=== PATIENT | female | born 1935 | race Caucasian/White ===

== ENCOUNTER 2016-09-23 09:40 | Emergency (ER) | payer MEDICARE, BC ==
[~2016-09-23] VITALS: Ht 154.9 cm; Wt 42.6 kg
[~2016-09-23 09:40] MED LIST: ALLEGRA ALLERGY60 M1 PO; BENADRYL CRE1 APPLIC TOPIC; BENADRYL25 M3 PO; BENADRYL25 MG ORAL; DIPHENHYDRAMINE25 M1 ORAL; PREDNISONE20 MG ORAL; RANITIDINE HCL150 MG ORAL
[2016-09-23] MEDS ORDERED: PredniSONE 20mg tab ORAL ONE (10:15)
--- NOTE | 2016-09-23 10:16 | Emergency Room Report ---
History of Present Illness General Chief Complaint: Allergic Reaction Source: Patient Present Illness HPI Patient present with complaints of rash involving her back hands and arms and lower extremity Patient has been dealing with this for several years Does have an sap basis specialist however he was closed today Patient started yesterday with increased rash on the back hands arms In the lower extremity patient had taken an extra Benadryl and Zantac on top of her daily allergy medication It seemed to initially improve the discomfort However the rash did come back this morning Patient denies any vomiting or diarrhea Denies any itching at this time however initially yesterday she had some increased itching Allergies: Coded Allergies: ACETAMINOPHEN (Verified Allergy, Unknown, 09/23/16) IBUPROFEN (Verified Allergy, Unknown, 09/23/16) STRAWBERRY (Verified Allergy, Unknown, 09/23/16) Patient History Past Medical History: see triage record Pertinent Family History: none Reviewed Nursing Documentation: PMH: Agreed, PSxH: Agreed Nursing Documentation-PMH Hx Hypertension: No Hx Neurological Problems: Yes - PARKINSON'S DISEASE Review of Systems All Other Systems: negative except mentioned in HPI Physical Exam Vital Signs Date Time Temp Pulse Resp B/P Pulse Ox O2 Delivery O2 Flow Rate FiO2 09/23/16 09:50 97.7 83 16 104/59 97 Room Air Sp02 EP Interpretation: reviewed, normal General Appearance: well appearing, no apparent distress Head: normocephalic, atraumatic Eyes: bilateral eye EOMI, bilateral eye PERRL ENT: hearing grossly normal, normal pharynx, TMs + canals normal, uvula midline Neck: full range of motion, supple, no meningismus, no bony tend Respiratory: lungs clear, normal breath sounds, no rhonchi, no respiratory distress, no retraction, no accessory muscle use Cardiovascular #1: normal peripheral pulses, regular rate, rhythm, no edema, no gallop, no JVD, no murmur Gastrointestinal: normal bowel sounds, non tender, soft, no mass, no organomegaly, non-distended, no guarding, no hernia, no pulsatile mass, no rebound Genitourinary: no CVA tenderness Musculoskeletal: normal inspection Neurologic: oriented x3, responsive, service agent III-XII nml as tested, motor strength/ tone normal, sensory intact Psychiatric: mood/affect normal Skin: other - Nonspecific finding erythematous hue involving the hands, lower extremity, the areas on the back have resolved, the rash is somewhat nonspecific no signs of any target cell appearance does not appear petechial in nature, no blister formation, or dermatomal fashion Lymphatic: normal inspection, no adenopathy Medical Decision Making Diagnostic Impression: Primary Impression: Allergic reaction Additional Impression: Dermatitis ER Course Patient has had several visits with similar problem and complaint patient is followed by dermatology and sap basis Family reports of the have still not been able to pinpoint the specifics of the etiology There was no change in medications no other contact At this time patient was treated symptomatically Appears medically stable and is appropriate for close outpatient followup There are no signs of any upper airway pathology Last Vital Signs Date Time Temp Pulse Resp B/P Pulse Ox O2 Delivery O2 Flow Rate FiO2 09/23/16 09:50 97.7 83 16 104/59 97 Room Air Status: improved Disposition: HOME, SELF-CARE Condition: Improved Scripts Ranitidine Hcl* (ZANTAC*) 150 Mg Tablet 150 MG ORAL TWICE A DAY, #30 TAB Prov: FRED PICKERING D.O. 09/23/16 Diphenhydramine Hcl* (BENADRYL*) 25 Mg Capsule 25 MG ORAL Q6H Y for Itching, #20 CAP Prov: FRED PICKERING D.O. 09/23/16 Prednisone* (PREDNISONE*) 20 Mg Tablet 20 MG ORAL BID, #8 TAB Prov: FRED PICKERING D.O. 09/23/16 Referrals: NOT CHOSEN IPA/,REFERRING (PCP) Additional Instructions: Patient is provided with the discharge instructions notified to follow up with primary doctor in the next 2-3 days otherwise return to the er with any worsening symptoms. FRED PICKERING D.O. Sep 23, 2016 10:16
[2016-09-23 10:27] VITALS: BP 104/59
[2016-09-23] MEDS ORDERED: PREDNISONE20 MG ORAL (11:08)
[2016-09-23] MEDS ORDERED: BENADRYL25 MG ORAL (11:08)
[2016-09-23] MEDS ORDERED: RANITIDINE HCL150 MG ORAL (11:08)
[2016-09-23 11:27] VITALS: BP 108/63
[2016-09-23 11:29] VITALS: BP 108/63
== END 2016-09-23 11:30 | disposition home or self-care (01) ==
LOC: EMR 10:11
DX: T78.40XA Allergy, unspecified, initial encounter (principal); L30.9 Dermatitis, unspecified; G20 Parkinson's disease; X58.XXXA Exposure to other specified factors, initial encounter; Z88.6 Allergy status to analgesic agent; Z91.018 Allergy to other foods
CPT/HCPCS: 99284

== ENCOUNTER 2017-09-12 00:44 | Emergency (ER) | payer MEDICARE, BC ==
[~2017-09-12] VITALS: Ht 154.9 cm; Wt 42.2 kg
[2017-09-12] MEDS ORDERED: Solu-MEDROL 125mg Inj IVP ONE (01:15)
[2017-09-12] MEDS ORDERED: DiphenhydrAMINE 50mg/ml Inj IVP ONE (01:15)
[2017-09-12] MEDS ORDERED: PREDNISONE20 MG ORAL (01:33)
--- NOTE | 2017-09-12 01:33 | Emergency Room Report ---
History of Present Illness General Chief Complaint: Skin Rash/Abscess Source: Patient Present Illness HPI This is an 82-year-old female with a history of allergies to multiple things. She presents with chief complaint of allergic reaction. She broke out in a rash around 11 PM. Her gave her 25 mg Benadryl without much relief. This is a episodic and chronic issue. 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 No new Medication or food tonight. No tongue edema. No respiratory complaint. Allergies: Coded Allergies: ACETAMINOPHEN (Verified Allergy, Unknown, 09/23/16) IBUPROFEN (Verified Allergy, Unknown, 09/23/16) STRAWBERRY (Verified Allergy, Unknown, 09/23/16) Patient History Past Medical History: see triage record, old chart reviewed Past Surgical History: other Pertinent Family History: none Social History: Denies: smoking Now: No Immunizations: other Reviewed Nursing Documentation: PMH: Agreed, PSxH: Agreed Nursing Documentation-PMH Hx Hypertension: No Hx Neurological Problems: Yes - PARKINSON'S DISEASE Review of Systems Eye: Denies: eye pain, blurred vision ENT: Denies: ear pain, nose congestion, throat swelling Respiratory: Denies: cough, shortness of breath Cardiovascular: Denies: chest pain, palpitations Gastrointestinal: Denies: abdominal pain, diarrhea, nausea, vomiting Musculoskeletal: Denies: back pain, joint pain Skin: Reports: rash Neurological: Denies: headache, numbness Endocrine: Denies: increased thirst, increased urine Hematologic/Lymphatic: Denies: easy bruising All Other Systems: negative except mentioned in HPI Physical Exam Vital Signs Date Time Temp Pulse Resp B/P (MAP) Pulse Ox O2 Delivery O2 Flow Rate FiO2 09/12/17 00:52 97.5 93 16 164/86 95 Room Air vitals with high blood pressure Sp02 EP Interpretation: reviewed, normal General Appearance: well appearing, no apparent distress, alert Head: normocephalic, atraumatic Eyes: bilateral eye PERRL, bilateral eye EOMI ENT: hearing grossly normal, normal pharynx Neck: full range of motion, supple, no meningismus Respiratory: chest non-tender, lungs clear, normal breath sounds Cardiovascular #1: regular rate, rhythm, no murmur Gastrointestinal: normal bowel sounds, non tender, no mass, no organomegaly, no bruit, non-distended Musculoskeletal: back normal, normal range of motion, other - Uses a walker Neurologic: alert, oriented x3 Psychiatric: mood/affect normal Skin: warm/dry, other - Diffuse hyperemia Medical Decision Making Diagnostic Impression: Primary Impression: Allergic reaction Qualified Codes: T78.40XA - Allergy, unspecified, initial encounter ER Course Patient with unknown allergic reaction. Better now. We'll discharge home. No anaphylaxis Last Vital Signs Date Time Temp Pulse Resp B/P (MAP) Pulse Ox O2 Delivery O2 Flow Rate FiO2 09/12/17 00:52 97.5 93 16 164/86 95 Room Air Status: improved Disposition: HOME, SELF-CARE Condition: Stable Scripts Prednisone* (PREDNISONE*) 20 Mg Tablet 20 MG ORAL DAILY, #5 TAB Prov: RADHA SANDRA M.D. 09/12/17 Referrals: NON PHYSICIAN (PCP) Additional Instructions: followup with your DrAdria in 7 days. Return if worse. RADHA SANDRA M.D. Sep 12, 2017 01:33
[2017-09-12 01:48] VITALS: BP 150/82
[2017-09-12 01:50] VITALS: BP 150/82
== END 2017-09-12 01:50 | disposition home or self-care (01) ==
LOC: EMR 01:03
DX: T78.40XA Allergy, unspecified, initial encounter (principal); X58.XXXA Exposure to other specified factors, initial encounter; G20 Parkinson's disease; Z88.6 Allergy status to analgesic agent; Z91.018 Allergy to other foods
CPT/HCPCS: 96374; 96375; 99284; J1200; J2930; S0028

== ENCOUNTER 2017-12-26 14:14 | Emergency (ER) | payer MEDICARE, BC ==
[~2017-12-26] VITALS: Ht 154.9 cm; Wt 44.5 kg
--- NOTE | 2017-12-26 14:42 | Emergency Room Report ---
History of Present Illness General Chief Complaint: Laceration Source: Patient, Medical Record (Ezequiel Rogel) Present Illness HPI 82-year-old female patient presents ER complaining of laceration on leg. Patient reports that she was standing by her bed and cut her leg on her mattress.was bleeding from site of injury. Denies taking any medication pain. Denies difficulty walking, reports she normally walks with a walker. Denies fever, chest pain or shortness breath. Denies hitting head or loss of consciousness. does not know tetanus vaccination status. (Ezequiel Rogel.AAdria) Allergies: Coded Allergies: ACETAMINOPHEN (Verified Allergy, Unknown, 09/23/16) IBUPROFEN (Verified Allergy, Unknown, 09/23/16) STRAWBERRY (Verified Allergy, Unknown, 09/23/16) Patient History Past Medical History: see triage record Reviewed Nursing Documentation: PMH: Agreed; PSxH: Agreed (Ezequiel Rogel) Nursing Documentation-PMH Past Medical History: No History, Except For Hx Hypertension: No Hx Neurological Problems: Yes - PARKINSON'S DISEASE (Ezequiel Rogel.Alla) Review of Systems All Other Systems: negative except mentioned in HPI (Ezequiel Rogel.Alla) Physical Exam Vital Signs Date Time Temp Pulse Resp B/P (MAP) Pulse Ox O2 Delivery O2 Flow Rate FiO2 12/26/17 14:19 97.8 87 18 109/57 96 Room Air 97.9 Sp02 EP Interpretation: reviewed, normal General Appearance: well appearing, no apparent distress, alert, GCS 15, non- toxic Head: normocephalic, atraumatic Neck: full range of motion Respiratory: lungs clear, normal breath sounds, no rhonchi, no respiratory distress, no accessory muscle use, no wheezing, speaking full sentences Cardiovascular #1: regular rate, rhythm, no edema Cardiovascular #2: 2+ dorsalis pedis (R), 2+ dorsalis pedis (L) Musculoskeletal: back normal, digits/nails normal, gait/station normal, normal range of motion, non-tender Skin: other - right lower leg, anterio: 2cm x 3cm skin avulsion, no active bleeding, superifical, avulsed skin present (Ezequiel Rogel) Medical Decision Making PA Attestation Dr. Cabrera is my supervising Physician whom patient management has been discussed with. (Ezequiel Rogel) Medicare Attestation The history of Noemi Arriaga has been reviewed and management options for her have been examined and discussed by Ignacio Cabrera. I have personally examined and interviewed the patient. (IGNACIO CABRERA D.O.) Diagnostic Impression: Primary Impression: Avulsion of skin ER Course Pt presents to ED c/o skin avulsion Distal Right Anterior lower leg. DDX considered but are not limited to laceration, abrasion, contusion, skin avulsion. VITAL SIGNS are WNL, patient is afebrile ED INTERVENTIONS: TDAP provided Consult with Dr. Cabrera. Patient seen and evaluated by Dr. Cabrera. Agree and treatment and plan. Do not believe sutures will provide adequate treatment for repair of skin avulsion, unable to extend skin avulsion to Borders for repair with Dermabond. Will remove avulsed skin, informed patient skin unlikely to heal. Wound was cleaned and irrigated using normal saline. Local block using Lidocaine 1%. Avulsed skin removed following local block with lidocaine. Wound cleaned and covered using sterile nonstick dressing and Bacitracin. Patient tolerated procedure well. Patient reports understanding and agreement to treatment plan. Keep wound clean and dry. Discussed pain management with PCP. DISCHARGE: Rx provided for Keflex. patient denies allergy to Keflex. instructed patient to fill prescription for Keflex, if symptoms worsen or surrounding erythema or increased drainage, begin taking antibiotic medication. Follow-up with primary care provider, discuss need for antibiotics at that time. Discuss referral to wound care. At this time pt is stable for d/c to home. Patient resting comfortably, in no acute distress, nontoxic appearing, talking without difficulty. Will provide with patient care instructions and any necessary prescriptions. Patient to take medication as instructed. Care plan and follow-up instructions provided. Work note provided to patient. Patient questions asked and answered. Patient instructed to follow-up with primary care provider in 1-3 days for wound check and 7-10 days for second wound check. ER precautions given. Patient instructed to return to ER immediately for any new or worsening of symptoms. - Please note that this Emergency Department Report was dictated using [employer] planner technology software, occasionally this can lead to erroneous entry secondary to interpretation by the dictation equipment. (Ezequiel Rogel) Last Vital Signs Date Time Temp Pulse Resp B/P (MAP) Pulse Ox O2 Delivery O2 Flow Rate FiO2 12/26/17 14:19 97.8 87 18 109/57 96 Room Air 97.9 (Ezequiel Rogel) Disposition: HOME, SELF-CARE Condition: Stable Scripts Cephalexin* (KEFLEX*) 500 Mg Capsule 500 MG ORAL EVERY 12 HOURS, #14 CAP 0 Refills Prov: Ezequiel Rogel 12/26/17 Patient Instructions: Deep Skin Avulsion, Nonsutured Laceration Care Additional Instructions: Patient instructed to follow-up with primary care provider in 1-3 days for wound check and 7-10 days for second wound check. Discuss referral to wound care. Take medications as directed. Discuss use of abx with PCP. Keep wound clean and dry. Patient questions asked and answered. ER precautions given, patient instructed to return to ER immediately for any new or worsening of symptoms. Ezequiel Rogel December 26, 2017 14:42 IGNACIO CABRERA D.O. December 29, 2017 06:40
[2017-12-26] MEDS ORDERED: Tetanus/Diptheria/Pertussis Vaccine 0.5ml Syr IM ONE (14:45)
[2017-12-26 15:13] VITALS: BP 109/57
[2017-12-26] MEDS ORDERED: Lidocaine 1% Plain 30 ml INJ ONE (15:30)
[2017-12-26] MEDS ORDERED: Bacitracin Oint UD TOPIC ONE (15:45)
[2017-12-26] MEDS ORDERED: CEPHALEXIN500 MG ORAL (15:59)
[2017-12-26 16:38] VITALS: BP 109/57
== END 2017-12-26 16:42 | disposition home or self-care (01) ==
LOC: EMR 16:06
DX: S81.811A Laceration without foreign body, right lower leg, initial encounter (principal); W45.8XXA Other foreign body or object entering through skin, initial encounter; Y92.003 Bedroom of unspecified non-institutional (private) residence as the place of occurrence of the external cause; Z23 Encounter for immunization; G20 Parkinson's disease; Z88.6 Allergy status to analgesic agent; Z91.018 Allergy to other foods
CPT/HCPCS: 90471; 90715; 96372; 99281

== ENCOUNTER 2017-12-26 23:37 | Emergency (ER) | payer MEDICARE, BC ==
[~2017-12-26] VITALS: Ht 154.9 cm; Wt 44.5 kg
[~2017-12-26 23:37] MED LIST changes: +CEPHALEXIN500 MG ORAL
[2017-12-27 00:05] VITALS: BP 148/76
--- NOTE | 2017-12-27 00:16 | Emergency Room Report ---
History of Present Illness General Chief Complaint: Wound Recheck/Suture Removal Source: Patient, Family Member Present Illness HPI Is an 82-year-old female who was here earlier today for skin avulsion and wound dressing done. She presents with chief complaint of bleeding per her . Bleeding was through the dressing and he was concerned. There is no new trauma. No other complaint. No fever chills but no nausea no vomiting. Allergies: Coded Allergies: ACETAMINOPHEN (Verified Allergy, Unknown, 09/23/16) IBUPROFEN (Verified Allergy, Unknown, 09/23/16) STRAWBERRY (Verified Allergy, Unknown, 09/23/16) Patient History Past Medical History: see triage record, old chart reviewed Past Surgical History: other Pertinent Family History: none Social History: Denies: smoking Now: No Immunizations: other Reviewed Nursing Documentation: PMH: Agreed; PSxH: Agreed Nursing Documentation-PMH Past Medical History: No History, Except For Hx Hypertension: No Hx Neurological Problems: Yes - PARKINSON'S DISEASE Review of Systems Eye: Denies: eye pain, blurred vision ENT: Denies: ear pain, nose congestion, throat swelling Respiratory: Denies: cough, shortness of breath Cardiovascular: Denies: chest pain, palpitations Gastrointestinal: Denies: abdominal pain, diarrhea, nausea, vomiting Musculoskeletal: Denies: back pain, joint pain Skin: Denies: rash Neurological: Denies: headache, numbness Endocrine: Denies: increased thirst, increased urine Hematologic/Lymphatic: Denies: easy bruising All Other Systems: negative except mentioned in HPI Physical Exam Vital Signs Date Time Temp Pulse Resp B/P (MAP) Pulse Ox O2 Delivery O2 Flow Rate FiO2 12/26/17 23:50 98.0 85 16 170/80 97 Room Air 98.1 vitals with high blood pressure Sp02 EP Interpretation: reviewed, normal General Appearance: well appearing, no apparent distress, alert Head: normocephalic, atraumatic Eyes: bilateral eye PERRL, bilateral eye EOMI ENT: hearing grossly normal, normal pharynx Neck: full range of motion, supple, no meningismus Respiratory: chest non-tender, lungs clear, normal breath sounds Cardiovascular #1: regular rate, rhythm, no murmur Gastrointestinal: normal bowel sounds, non tender, no mass, no organomegaly, no bruit, non-distended Musculoskeletal: back normal, normal range of motion, other - patient walks with a walker. Left lower extremity: This above the ankle who wound is clean. She has about a 4 x 4 cm skin avulsion. There is oozing of blood from one of the small venule. Psychiatric: mood/affect normal Skin: warm/dry Medical Decision Making Diagnostic Impression: Primary Impression: Encounter for wound re-check ER Course Patient with skin avulsion and now bleeding from small blood vessel. No active bleeding now. No laceration. I cauterized one of the small vessel and put surgicel on the wound. And I place a pressure dressing on it. Patient tolerated procedure without a problem. No active bleeding. We'll discharge home. No infection. Last Vital Signs Date Time Temp Pulse Resp B/P (MAP) Pulse Ox O2 Delivery O2 Flow Rate FiO2 12/27/17 00:05 98.1 88 16 148/76 97 Room Air 98.1 Status: improved Disposition: HOME, SELF-CARE Condition: Stable Patient Instructions: Wound Check Additional Instructions: keep wound clean. Follow up with your doctor in 7 days. Return if symptoms worsen, bleeding or evidence of infection. RADHA SANDRA M.D. December 27, 2017 00:16
[2017-12-27 00:25] VITALS: BP 148/76
== END 2017-12-27 00:25 | disposition home or self-care (01) ==
LOC: EMR 23:59
DX: S81.802D Unspecified open wound, left lower leg, subsequent encounter (principal); X58.XXXD Exposure to other specified factors, subsequent encounter; Z48.00 Encounter for change or removal of nonsurgical wound dressing; G20 Parkinson's disease; Z88.6 Allergy status to analgesic agent
CPT/HCPCS: 99283

== ENCOUNTER 2018-01-07 23:17 | Emergency (ER) | payer MEDICARE, BC ==
[~2018-01-07] VITALS: Ht 154.9 cm; Wt 44.5 kg
[2018-01-07 23:30] VITALS: BP 170/80
[2018-01-07] MEDS ORDERED: SINEMET 25-1001 EAC1 ORAL (23:31)
--- NOTE | 2018-01-07 23:52 | Emergency Room Report ---
History of Present Illness General Chief Complaint: Head Injury Source: Patient, Family Member Present Illness HPI This 82-year-old female with history of Parkinson. She is unsteady on her feet. She uses a walker. She had a mechanical fall when she try to turn and hit the back her head on the ground. No loss of consciousness. Bleeding from that area. Denies any nausea vomiting. Pain is 5 out of 10. No other injury. Allergies: Coded Allergies: ACETAMINOPHEN (Verified Allergy, Unknown, 09/23/16) IBUPROFEN (Verified Allergy, Unknown, 09/23/16) STRAWBERRY (Verified Allergy, Unknown, 09/23/16) Patient History Past Medical History: see triage record, old chart reviewed Past Surgical History: other Pertinent Family History: none Social History: Denies: smoking Now: No Immunizations: UTD Reviewed Nursing Documentation: PMH: Agreed; PSxH: Agreed Nursing Documentation-PMH Past Medical History: No History, Except For Hx Hypertension: No Hx Neurological Problems: Yes - PARKINSON'S DISEASE Review of Systems Eye: Denies: eye pain, blurred vision ENT: Denies: ear pain, nose congestion, throat swelling Respiratory: Denies: cough, shortness of breath Cardiovascular: Denies: chest pain, palpitations Gastrointestinal: Denies: abdominal pain, diarrhea, nausea, vomiting Musculoskeletal: Denies: back pain, joint pain Skin: Denies: rash Neurological: Denies: headache, numbness Endocrine: Denies: increased thirst, increased urine Hematologic/Lymphatic: Denies: easy bruising All Other Systems: negative except mentioned in HPI Physical Exam Vital Signs Date Time Temp Pulse Resp B/P (MAP) Pulse Ox O2 Delivery O2 Flow Rate FiO2 01/07/18 23:23 98.1 90 18 177/77 96 Room Air 98.1 vitals with high pressure Sp02 EP Interpretation: reviewed, normal General Appearance: well appearing, no apparent distress, alert Head: normocephalic, other - 3 cm laceration No foreign Body. Eyes: bilateral eye PERRL, bilateral eye EOMI ENT: hearing grossly normal, normal pharynx Neck: full range of motion, supple, no meningismus Respiratory: chest non-tender, lungs clear, normal breath sounds Cardiovascular #1: regular rate, rhythm, no murmur Gastrointestinal: normal bowel sounds, non tender, no mass, no organomegaly, no bruit, non-distended Musculoskeletal: back normal, gait/station normal, normal range of motion Psychiatric: mood/affect normal Skin: warm/dry Procedures Laceration/Wound Repair Laceration/Wound Repair : Consent: Verbal Wound Location: head Wound's Depth, Shape: into muscle, irregular, contused tissue Wound Length (cm): 4 Wound Explored: clean Irrigated w/ Saline (ccs): 1000 Anesthesia: 1% Lidocaine Volume Anesthetic (ccs): 5 Wound Repaired With: sutures Suture Size/Type: 4:0, other - chromic Number of Sutures: 1 Sterile Dressing Applied?: Yes Patient Tolerated: Well Complications: None Progress I placed 1 continuous running suture. Patient tolerated procedure w/o any problem. Medical Decision Making Diagnostic Impression: Primary Impression: Acute head injury Qualified Codes: S09.90XA - Unspecified injury of head, initial encounter Additional Impression: Scalp laceration Qualified Codes: S01.01XA - Laceration without foreign body of scalp, initial encounter ER Course Patient with a fall and a scalp laceration. No evidence of syncope. No intracranial bleed or fracture. She's not on anticoagulation. We'll discharge home. CT/MRI/US Diagnostic Results CT/MRI/US Diagnostic Results : Imaging Test Ordered: CT head Impression negative per radiologist Last Vital Signs Date Time Temp Pulse Resp B/P (MAP) Pulse Ox O2 Delivery O2 Flow Rate FiO2 01/07/18 23:23 98.1 90 18 177/77 96 Room Air 98.1 Status: improved Disposition: HOME, SELF-CARE Condition: Stable Additional Instructions: Follow-up your doctor in 7 days. Sutures will fall off. Return if worse. RADHA SANDRA M.D. January 07, 2018 23:52
[2018-01-08] MEDS ORDERED: traMADol 50mg tab ORAL ONE
[2018-01-08 01:40] VITALS: BP 156/78
[2018-01-08 01:48] VITALS: BP 156/78
--- NOTE | 2018-01-08 08:11 | Diagnostic Imaging Report ---
Indication: Dizziness, head trauma Technique: Continuous helical CT scanning of the head was performed without intravenous contrast material. Axial and coronal 5 mm sections were generated. Dose: Total Dose Length Product - DLP [address] Dose Index - CTDIvol(s) 70.38 mGy. Automated exposure control was utilized for dose reduction. Comparison: None Findings: There is prominence of cortical sulci and the ventricular system. Periventricular low density is present. There is no shift of midline structures. No abnormal extra-axial fluid collections are noted. There is no evidence of intracerebral bleeding. No other abnormal high or low density areas are noted within the brain. There is some scalp swelling near the vertex on the left. Impression: Atrophy. Chronic small vessel white matter ischemic change. Minimal scalp swelling of the vertex on the left. No acute intracranial abnormality. The above report is concordant with preliminary reading by [employer] with additional findings. The CT scanner at [facility] is accredited by the [employer] and the scans are performed using protocols designed to limit radiation exposure to as low as reasonably achievable to attain images of sufficient resolution adequate for diagnostic evaluation.
== END 2018-01-08 01:50 | disposition home or self-care (01) ==
LOC: EMR 23:30
DX: S01.01XA Laceration without foreign body of scalp, initial encounter (principal); W19.XXXA Unspecified fall, initial encounter; Y92.9 Unspecified place or not applicable; G20 Parkinson's disease; Z88.6 Allergy status to analgesic agent
CPT/HCPCS: 70450; 99284

== ENCOUNTER 2018-09-19 20:44 | Inpatient (IN) | payer MEDICARE, BC ==
[~2018-09-19] VITALS: Ht 154.9 cm; Wt 45.4 kg
[2018-09-19 20:44] VITALS: BP 162/78
[~2018-09-19 20:44] MED LIST changes: +SINEMET 25-1001 EAC1 ORAL
--- NOTE | 2018-09-19 20:44 | NUR ---
ED Nurse Note: per RA26 pt had mechanical fall with L hip and elbow pain. pt skin present with no abnormalities. pt denies any head trauma. pt is alert and oriented times 4. fall precautions are taken. pt has call light by bed side. pt instructed not to ambulate out of bed with out assistence. pt pupiles are round and reactive towards light.
[2018-09-19] MEDS ORDERED: Morphine Sulfate 2mg/ml Inj IVP ONE (21:00)
[2018-09-19] MEDS ORDERED: Sodium Chloride 550 ML IV SCH (21:30)
--- NOTE | 2018-09-19 21:33 | Emergency Room Report ---
History of Present Illness General Chief Complaint: Multiple Trauma/Fall Source: EMS Present Illness HPI 83-year-old female presents ED for evaluation. Patient brought in by EMS status post fall. States that she tripped in the kitchen landing on her left side tonight. Complaining of left hip pain. Denies hitting his head or LOC. Pain is throbbing, 9 out of 10, nonradiating. Unable to bear weight. Denies any other injuries. No other aggravating relieving factors. Denies any other associated symptoms Allergies: Coded Allergies: ACETAMINOPHEN (Verified Allergy, Unknown, 09/23/16) IBUPROFEN (Verified Allergy, Unknown, 09/23/16) STRAWBERRY (Verified Allergy, Unknown, 09/23/16) Patient History Past Medical History: none Past Surgical History: none Pertinent Family History: none Social History: Denies: smoking, alcohol use, drug use Now: No Immunizations: UTD Reviewed Nursing Documentation: PMH: Agreed; PSxH: Agreed Nursing Documentation-PMH Past Medical History: No History, Except For Hx Hypertension: No Hx Neurological Problems: Yes - PARKINSON'S DISEASE Review of Systems All Other Systems: negative except mentioned in HPI Physical Exam Vital Signs Date Time Temp Pulse Resp B/P (MAP) Pulse Ox O2 Delivery O2 Flow Rate FiO2 09/19/18 20:38 98.4 88 18 162/78 98 Room Air 09/19/18 20:44 99 Sp02 EP Interpretation: reviewed, normal General Appearance: no apparent distress, alert, GCS 15, non-toxic Head: normocephalic Eyes: bilateral eye normal inspection, bilateral eye PERRL ENT: normal ENT inspection Neck: full range of motion, supple/symm/no masses Respiratory: normal inspection Cardiovascular #1: normal inspection Gastrointestinal: normal inspection Rectal: deferred Genitourinary: no CVA tenderness Musculoskeletal: tender - L hip Neurologic: alert, oriented x3, responsive, motor strength/tone normal, sensory intact, speech normal Psychiatric: normal inspection Skin: normal inspection Lymphatic: normal inspection Medical Decision Making Diagnostic Impression: Primary Impression: Hip fracture, left Qualified Codes: S72.002A - Fracture of unspecified part of neck of left femur , initial encounter for closed fracture ER Course Hospital Course 83-year-old female presents to ED with L hip pain s/p fall Differential diagnoses include: fracture, dislocation, contusion Clinical course Patient placed on stretcher. After initial history and physical I ordered labs , pain medication and imaging studies Labs reviewed- no leukocytosis noted, electrolytes okay, hemoglobin/hematocrit okay Femur x-ray shows intertrochanteric fx, also seen on pelvis xray CT down unable to perform at this time Family states that Dr. Goff had previously repaired patient's right hip. I spoke to him. He would accept the patient but he has privileges at [facility] and [facility]. Both hospitals are on saturation. Family agreed to be admitted here. Dr Jennings contacted for orthopedics Case discussed with Dr. Reyes who agreed to accept the patient to his service for further care and support i. I feel this is a highly complex case requiring extensive working including EKG/Rhythm strip, Xray/CT/US, Blood/urine lab work, repeat exams while in ED, and administration of strong opiates/narcotics for pain control, admission to hospital or close patient follow up. Diagnosis - hip fracture, left Admitted to floor in serious condition Labs Test 09/19/18 21:30 White Blood Count 5.0 K/UL (4.8-10.8) Red Blood Count 4.15 M/UL (4.20-5.40) Hemoglobin 12.7 G/DL (12.0-16.0) Hematocrit 37.6 % (37.0-47.0) Mean Corpuscular Volume 91 FL (80-99) Mean Corpuscular Hemoglobin 30.6 PG (27.0-31.0) Mean Corpuscular Hemoglobin Concent 33.7 G/DL (32.0-36.0) Red Cell Distribution Width 12.0 % (11.6-14.8) Platelet Count 180 K/UL (150-450) Mean Platelet Volume 6.0 FL (6.5-10.1) Neutrophils (%) (Auto) 69.9 % (45.0-75.0) Lymphocytes (%) (Auto) 18.3 % (20.0-45.0) Monocytes (%) (Auto) 9.2 % (1.0-10.0) Eosinophils (%) (Auto) 1.8 % (0.0-3.0) Basophils (%) (Auto) 0.7 % (0.0-2.0) Prothrombin Time 10.8 SEC (9.30-11.50) Prothromb Time International Ratio 1.0 (0.9-1.1) Activated Partial Thromboplast Time 30 SEC (23-33) Sodium Level 140 MMOL/L (136-145) Potassium Level 3.7 MMOL/L (3.5-5.1) Chloride Level 105 MMOL/L (98-107) Carbon Dioxide Level 28 MMOL/L (21-32) Anion Gap 7 mmol/L (5-15) Blood Urea Nitrogen 30 mg/dL (7-18) Creatinine 0.8 MG/DL (0.55-1.30) Estimat Glomerular Filtration Rate mL/min (>60) Glucose Level 111 MG/DL (74-106) Calcium Level 8.9 MG/DL (8.5-10.1) Total Bilirubin 0.5 MG/DL (0.2-1.0) Aspartate Amino Transf (AST/SGOT) 23 U/L (15-37) Alanine Aminotransferase (ALT/SGPT) 10 U/L (12-78) Alkaline Phosphatase 81 U/L (46-116) Total Protein 7.3 G/DL (6.4-8.2) Albumin 3.4 G/DL (3.4-5.0) Globulin 3.9 g/dL Albumin/Globulin Ratio 0.9 (1.0-2.7) Other X-Ray Diagnostic Results Other X-Ray Diagnostic Results #1: X-Ray ordered: L femur\ # of Views/Limited Vs Complete: 3 View Indication: Pain EP Interpretation: Yes Interpretation: no dislocation, no soft tissue swelling, other - intertrochanteric fx Impression: Other Electronically Signed by: Electronically signed by Ritesh Alvarado MD Other X-Ray Diagnostic Results #2: X-Ray ordered: Pelvis # of Views/Limited Vs Complete: 2 View Indication: Pain EP Interpretation: Yes Interpretation: no dislocation, no soft tissue swelling, other - L intertrochanteric fx Impression: Other - fx Electronically Signed by: Electronically signed by Ritesh Alvarado MD Last Vital Signs Date Time Temp Pulse Resp B/P (MAP) Pulse Ox O2 Delivery O2 Flow Rate FiO2 09/19/18 20:44 88 18 Room Air 99 09/19/18 20:44 98.4 162/78 98 Status: improved Disposition: ADMITTED INPATIENT Condition: Serious Ritesh Alvarado MD Sep 19, 2018 21:33
[2018-09-19 21:45] LABS: BASOPHILS % (AUTO) 0.7 % (0.0-2.0); EOSINOPHILS % (AUTO) 1.8 % (0.0-3.0); HEMATOCRIT 37.6 % (37.0-47.0); HEMOGLOBIN 12.7 G/DL (12.0-16.0); LYMPHOCYTES % (AUTO) 18.3 % (20.0-45.0); MEAN CORPUSCULAR VOLUME 91 FL (80-99); MONOCYTES % (AUTO) 9.2 % (1.0-10.0); NEUTROPHILS % (AUTO) 69.9 % (45.0-75.0); PLATELET COUNT 180 K/UL (150-450); RED BLOOD COUNT 4.15 M/UL (4.20-5.40)
[2018-09-19 21:59] LABS: ANION GAP 7 mmol/L (5-15); BLOOD UREA NITROGEN 30 mg/dL (7-18); CALCIUM 8.9 MG/DL (8.5-10.1); CARBON DIOXIDE 28 MMOL/L (21-32); CHLORIDE 105 MMOL/L (98-107); CREATININE 0.8 MG/DL (0.55-1.30); POTASSIUM 3.7 MMOL/L (3.5-5.1); SODIUM 140 MMOL/L (136-145)
[2018-09-19 22:04] LABS: ALANINE AMINOTRANSFERASE 10 U/L (12-78); ALBUMIN 3.4 G/DL (3.4-5.0); ALBUMIN/GLOBULIN RATIO 0.9 (1.0-2.7); ALKALINE PHOSPHATASE 81 U/L (46-116); ASPARTATE AMINO TRANSFERASE 23 U/L (15-37); BILIRUBIN,TOTAL 0.5 MG/DL (0.2-1.0)
[2018-09-19 22:15] VITALS: BP 140/72
[2018-09-20] VITALS (8 sets, daily range): BP systolic 121–164; BP diastolic 66–92
[2018-09-20] MEDS ORDERED: Morphine Sulfate 2mg/ml Inj IVP ONE (00:15)
--- NOTE | 2018-09-20 01:12 | NUR ---
NURSE NOTES: Received telephone report from MARAH Fritz (ED Nurse).
--- NOTE | 2018-09-20 01:13 | NUR ---
ED Nurse Note: pt is transfered to MED SURG with RN VERONICA. pt status vital signs, status and condition has been reported to ERMD and receving RN. pt is stable for transfer.
--- NOTE | 2018-09-20 01:30 | NUR ---
NURSE NOTES: Received pt from MARAH Fritz via carmella. Pt in bed, a&ox4, in room air. No s/s of acute distress & c/o minimal pain at this time. Belongings checked & accounted for. F/C intact & draining yellow urine output to gravity. IV site intact & S/L'd. Slight ecchymosis on left hip d/t mechanical fall at home. Oriented to hospital room. Called Dr. Bull's exchange for admission orders. Dr. Sadler (On-call) gave admission orders. Entered & carried out. Bed in lowest position, call light within reach. Will continue to monitor.
[2018-09-20] MEDS ORDERED: Morphine Sulfate 2mg/ml Inj IVP PRN (02:00)
--- NOTE | 2018-09-20 07:30 | NUR ---
HAND-OFF: Report given to MARAH Morton. AM RN to f/u with Dr. Bull or on-call doctor regarding surgery/orthopedic doctor. Per pt's , they have their own orthopedic doctor, Dr. Vivas, but he is only licensed to work at [facility] & [facility]. Breakfast tray set aside for now until surgery date & time is confirmed. Charge nurse Jerry also aware.
--- NOTE | 2018-09-20 07:35 | NUR ---
NURSE NOTES: Report received, rounds made. Patient sleeping, arousable to name, positioned to right side. No distress noted. Patient on RA. Left AC heplock, asymptomatic. Sahu patent, draining to gravity, yellow clear urine. Spouse at bedside. Patient denies pain at this time. Left hip skin intact, light bruising noted. Call light in reach, bed in lowest position. Will continue to monitor.
[2018-09-20 07:49] LABS: HEMATOCRIT 37.8 % (37.0-47.0); HEMOGLOBIN 13.1 G/DL (12.0-16.0); MEAN CORPUSCULAR VOLUME 89 FL (80-99); PLATELET COUNT 165 K/UL (150-450); RED BLOOD COUNT 4.23 M/UL (4.20-5.40); RED CELL DISTRIBUTION WIDTH 12.1 % (11.6-14.8); WHITE BLOOD COUNT 9.9 K/UL (4.8-10.8)
[2018-09-20 08:05] LABS: ANION GAP 8 mmol/L (5-15); BLOOD UREA NITROGEN 23 mg/dL (7-18); CALCIUM 8.8 MG/DL (8.5-10.1); CARBON DIOXIDE 29 MMOL/L (21-32); CHLORIDE 104 MMOL/L (98-107); CREATININE 0.7 MG/DL (0.55-1.30); POTASSIUM 3.3 MMOL/L (3.5-5.1); SODIUM 140 MMOL/L (136-145)
--- NOTE | 2018-09-20 08:20 | NUR ---
NURSE NOTES: Spoke with Dr. Jennings (orthopedics), orders received for surgery tomorrow, consent for left hip hemiarthroplasty, NPO after midnight, CT scan (without contrast) of left hip today. Will update patient and spouse.
[2018-09-20] MEDS: Levodopa/Carbidopa 25/100 tab ORAL SCH ×3 (09:00→18:00)
--- NOTE | 2018-09-20 09:45 | NUR ---
NURSE NOTES: Patient noted with generalized redness/allergic reaction to face and body. No respiratory distress. Dr. Bull notified, will see her shortly.
[2018-09-20] MEDS: Heparin 5000 units/ml inj SUBQ SCH ×2 (10:05→21:04)
--- NOTE | 2018-09-20 10:45 | NUR ---
NURSE NOTES: Dr. Martha Gutierrez notified of allergic reaction, IVF needed and K level 3.3, orders for IVF and Benadryl (x1 dose), see eMAR.
--- NOTE | 2018-09-20 10:47 | NUR ---
RD ASSESSMENT & RECOMMENDATIONS SEE CARE ACTIVITY FOR COMPLETE ASSESSMENT DAILY ESTIMATED NEEDS: Needs based on Underweight, Fx/ 43kg 30-35 kcals/kg 1785-9877 total kcals 1-1.5 g protein/kg 43-65 g total protein 25-30 mL/kg 0772-3753 total fluid mLs NUTRITION DIAGNOSIS: Increased kcal/prot needs R/T underweight status as evidenced by 90% IBW, low BMI per guidelines. CURRENT DIET:REGULAR, soft easy chew, Kosher PO DIET RECOMMENDATIONS: Regular, KOSHER/ texture as tolerated ADDITIONAL RECOMMENDATIONS: * Calibrated bedscale wt for accurate CBW * Weekly wt monitoring given underweight status * MVI x 1 as supplement * Monitor PO intake closely (Pt does not want Ensure supplements)
[2018-09-20] MEDS ORDERED: DiphenhydrAMINE 50mg/ml Inj IVP SCH (10:58)
--- NOTE | 2018-09-20 11:03 | History and Physical ---
History of Present Illness General Date patient seen: Sep 20, 2018 Time patient seen: 08:30 Reason for Hospitalization: Multiple Trauma/Fall Present Illness HPI 83 year old woman with history of Parkinson's on Sinemet who presented to the ED after GLF, states that she tripped in the kitchen landing on her left side tonight. Complaining of left hip pain, severe, 10/10. Non radiating. She denies LOC, chest pain, palpitations. Imaging in ED showed L intertrochanteric fracture. Social Hx: No alcohol or tobacco Family Hx: No CAD or stroke Allergies: Coded Allergies: ACETAMINOPHEN (Verified Allergy, Unknown, 09/23/16) IBUPROFEN (Verified Allergy, Unknown, 09/23/16) STRAWBERRY (Verified Allergy, Unknown, 09/23/16) Medication History Scheduled Carbidopa/Levodopa 25-100 Mg* (Sinemet 25-100 Mg Tablet*), 1 TAB ORAL THREE TIMES A DAY, (Reported) Cephalexin* (Keflex*), 500 MG ORAL EVERY 12 HOURS Patient History Healthcare decision maker Resuscitation status Full Code Advanced Directive on File Review of Systems Constitutional: Denies: chills, sweats, fever Eye: Denies: eye pain ENT: Denies: ear pain Respiratory: Denies: cough Cardiovascular: Denies: chest pain Gastrointestinal: Denies: abdominal pain Musculoskeletal: Denies: back pain Neurological: Denies: headache Physical Exam General Appearance: no apparent distress, alert HEENT: normocephalic, anicteric Neck: non-tender, normal alignment Respiratory/Chest: chest wall non-tender, lungs clear Cardiovascular/Chest: normal peripheral pulses, normal rate, regular rhythm Abdomen: normal bowel sounds, non tender Extremities: other - LLE externally rotated Skin Exam: warm/dry 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, no motor/sensory deficits, alert, oriented x 3 Last 24 Hour Vital Signs Date Time Temp Pulse Resp B/P (MAP) Pulse Ox O2 Delivery O2 Flow Rate FiO2 09/20/18 08:00 98.8 84 18 158/85 (109) 95 09/20/18 04:00 99.0 86 17 158/80 (106) 94 09/20/18 03:16 Room Air 09/20/18 01:30 98.4 91 18 164/87 (112) 95 09/20/18 01:12 98.4 72 15 150/71 99 Room Air 99 09/20/18 01:01 98.4 72 15 150/71 99 Room Air 09/20/18 01:00 98.4 09/20/18 00:15 98.4 80 14 146/70 99 Room Air 09/19/18 22:15 98.4 66 15 140/72 99 Room Air 09/19/18 20:44 88 18 Room Air 99 09/19/18 20:44 98.4 68 18 162/78 98 Room Air 09/19/18 20:38 98.4 88 18 162/78 98 Room Air Intake and Output 09/19/18 09/20/18 19:00 07:00 Output Total 300 ml Balance -300 ml Output Urine Total 300 ml Laboratory Tests Test 09/19/18 21:30 09/20/18 06:35 White Blood Count 5.0 K/UL (4.8-10.8) 9.9 K/UL (4.8-10.8) # Red Blood Count 4.15 M/UL (4.20-5.40) L 4.23 M/UL (4.20-5.40) Hemoglobin 12.7 G/DL (12.0-16.0) 13.1 G/DL (12.0-16.0) Hematocrit 37.6 % (37.0-47.0) 37.8 % (37.0-47.0) Mean Corpuscular Volume 91 FL (80-99) 89 FL (80-99) Mean Corpuscular Hemoglobin 30.6 PG (27.0-31.0) 31.0 PG (27.0-31.0) Mean Corpuscular Hemoglobin Concent 33.7 G/DL (32.0-36.0) 34.7 G/DL (32.0-36.0) Red Cell Distribution Width 12.0 % (11.6-14.8) 12.1 % (11.6-14.8) Platelet Count 180 K/UL (150-450) 165 K/UL (150-450) Mean Platelet Volume 6.0 FL (6.5-10.1) L 6.0 FL (6.5-10.1) L Neutrophils (%) (Auto) 69.9 % (45.0-75.0) % (45.0-75.0) Lymphocytes (%) (Auto) 18.3 % (20.0-45.0) L % (20.0-45.0) Monocytes (%) (Auto) 9.2 % (1.0-10.0) % (1.0-10.0) Eosinophils (%) (Auto) 1.8 % (0.0-3.0) % (0.0-3.0) Basophils (%) (Auto) 0.7 % (0.0-2.0) % (0.0-2.0) Prothrombin Time 10.8 SEC (9.30-11.50) Prothromb Time International Ratio 1.0 (0.9-1.1) Activated Partial Thromboplast Time 30 SEC (23-33) Sodium Level 140 MMOL/L (136-145) 140 MMOL/L (136-145) Potassium Level 3.7 MMOL/L (3.5-5.1) 3.3 MMOL/L (3.5-5.1) L Chloride Level 105 MMOL/L (98-107) 104 MMOL/L (98-107) Carbon Dioxide Level 28 MMOL/L (21-32) 29 MMOL/L (21-32) Anion Gap 7 mmol/L (5-15) 8 mmol/L (5-15) Blood Urea Nitrogen 30 mg/dL (7-18) H 23 mg/dL (7-18) H Creatinine 0.8 MG/DL (0.55-1.30) 0.7 MG/DL (0.55-1.30) Estimat Glomerular Filtration Rate mL/min (>60) mL/min (>60) Glucose Level 111 MG/DL (74-106) H 114 MG/DL (74-106) H Calcium Level 8.9 MG/DL (8.5-10.1) 8.8 MG/DL (8.5-10.1) Total Bilirubin 0.5 MG/DL (0.2-1.0) Aspartate Amino Transf (AST/SGOT) 23 U/L (15-37) Alanine Aminotransferase (ALT/SGPT) 10 U/L (12-78) L Alkaline Phosphatase 81 U/L (46-116) Total Protein 7.3 G/DL (6.4-8.2) Albumin 3.4 G/DL (3.4-5.0) Globulin 3.9 g/dL Albumin/Globulin Ratio 0.9 (1.0-2.7) L Differential Total Cells Counted 100 Neutrophils % (Manual) 85 % (45-75) H Lymphocytes % (Manual) 5 % (20-45) L Monocytes % (Manual) 6 % (1-10) Eosinophils % (Manual) 1 % (0-3) Basophils % (Manual) 0 % (0-2) Band Neutrophils 3 % (0-8) Platelet Estimate Adequate Platelet Morphology Normal Red Blood Cell Morphology Normal Height (Feet): 5 Height (Inches): 1.00 Weight (Pounds): 93 Medications Current Medications Medications (Trade) Dose Ordered Sig/Adelaide Route PRN Reason Start Time Stop Time Status Last Admin Dose Admin Carbidopa/Levodopa (Sinemet 25/100) 1 tab THREE TIMES A DAY ORAL 09/20/18 09:00 10/20/18 08:59 Heparin Sodium (Porcine) (Heparin 5000 units/ml) 5,000 units EVERY 12 HOURS SUBQ 09/20/18 09:00 10/20/18 08:59 09/20/18 10:05 Morphine Sulfate (Morphine Sulfate) 2 mg Q6H PRN IVP MODERATE TO SEVERE PAIN 4-10 09/20/18 02:00 09/27/18 01:59 Assessment/Plan Assessment/Plan #L hip intertrochanteric fx secondary to GLF -admit to medical service -Supportive care -Pain control -VTE PPx -NPO after midnight for possible ORIF in AM -IV hydration -Orthopedic Surgery consulted -Spoke with at bedside #Mild hypokalemia -replace with IV fluids #Parkinson's -continue Sinemet I spent 70 minutes on this patient's case, and 35 minutes was dedicated to counseling and/or care coordination. Michael Lares MD Sep 20, 2018 11:03
--- NOTE | 2018-09-20 11:10 | Diagnostic Imaging Report ---
Indication: pain Pelvic trauma and pain Findings: Single AP view of the pelvis was performed. There is evidence of a left femoral neck fracture. There is slight impaction. Old fracture of the right hip also noted with the reduction via pins. Bones are moderately osteopenic. The sacrum is largely obscured by bowel gas and stool. Degenerative changes of the lower lumbar spine are noted. Old pubis fracture also noted. IMPRESSION: Acute left hip fracture
--- NOTE | 2018-09-20 11:14 | Diagnostic Imaging Report ---
Indication: Left thigh pain Comparison: None Findings: 2 views of the left femur were obtained. There is an acute fracture of the left femoral neck. Bones are osteopenic. Slight impaction noted. IMPRESSION: Acute left femoral neck fracture
[2018-09-20] MEDS: D5 1/2NS w/KCl 20mEq 1,000 ML IV SCH (12:12)
--- NOTE | 2018-09-20 12:59 | Anethesia Preoperative Eval ---
Anesthesia Pre-op PMH/ROS General Date of Evaluation: Sep 20, 2018 Anesthesiologist: Kamaljit ASA Score: ASA 2 Mallampati Score Class I : Soft palate, uvula, fauces, pillars visible Class II: Soft palate, uvula, fauces visible Class III: Soft palate, base of uvula visible Class IV: Only hard plate visible Mallampati Classification: Class II Surgeon: Dick Diagnosis: Left hip fracture Surgical Procedure: Left hip hemiarthroplasty Anesthesia History: none Family History: no anesthesia problems Allergies: Coded Allergies: ACETAMINOPHEN (Verified Allergy, Unknown, 09/23/16) IBUPROFEN (Verified Allergy, Unknown, 09/23/16) STRAWBERRY (Verified Allergy, Unknown, 09/23/16) Medications: see eMAR Patient NPO?: Yes NPO Date: Sep 20, 2018 Past Medical History Cardiovascular: Reports: HTN; Denies: CAD, [place], valve dz, arrhythmia, other Pulmonary: Denies: asthma, COPD, BEN, other Gastrointestinal/Genitourinary: Denies: GERD, CRI, ESRD, other Neurologic/Psychiatric: Reports: other - parkisons; Denies: dementia, CVA, depression/anxiety, TIA Endocrine: Denies: DM, hypothyroidism, steroids, other HEENT: Denies: cataract (L), cataract (R), glaucoma, UTE (L), UTE (R), other Hematology/Immune: Denies: anemia, DVT, bleeding disorder, other Musculoskeletal/Integumentary: Denies: OA, RA, DJD, DDD, edema, other PSxH Narrative: Right hip arthroplasty Anesthesia Pre-op Phys. Exam Physician Exam Last Vital Signs Date Time Temp Pulse Resp B/P (MAP) Pulse Ox O2 Delivery O2 Flow Rate FiO2 09/20/18 08:00 98.8 84 18 158/85 (109) 95 09/20/18 03:16 Room Air 09/20/18 01:12 99 Constitutional: NAD Cardiovascular: RRR Respiratory: CTA Airway Exam Mallampati Score: Class II Anesthesia Pre-op A/P Labs Hematology Test 09/19/18 21:30 09/20/18 06:35 White Blood Count 5.0 K/UL (4.8-10.8) 9.9 K/UL (4.8-10.8) # Red Blood Count 4.15 M/UL (4.20-5.40) L 4.23 M/UL (4.20-5.40) Hemoglobin 12.7 G/DL (12.0-16.0) 13.1 G/DL (12.0-16.0) Hematocrit 37.6 % (37.0-47.0) 37.8 % (37.0-47.0) Mean Corpuscular Volume 91 FL (80-99) 89 FL (80-99) Mean Corpuscular Hemoglobin 30.6 PG (27.0-31.0) 31.0 PG (27.0-31.0) Mean Corpuscular Hemoglobin Concent 33.7 G/DL (32.0-36.0) 34.7 G/DL (32.0-36.0) Red Cell Distribution Width 12.0 % (11.6-14.8) 12.1 % (11.6-14.8) Platelet Count 180 K/UL (150-450) 165 K/UL (150-450) Mean Platelet Volume 6.0 FL (6.5-10.1) L 6.0 FL (6.5-10.1) L Neutrophils (%) (Auto) 69.9 % (45.0-75.0) % (45.0-75.0) Lymphocytes (%) (Auto) 18.3 % (20.0-45.0) L % (20.0-45.0) Monocytes (%) (Auto) 9.2 % (1.0-10.0) % (1.0-10.0) Eosinophils (%) (Auto) 1.8 % (0.0-3.0) % (0.0-3.0) Basophils (%) (Auto) 0.7 % (0.0-2.0) % (0.0-2.0) Differential Total Cells Counted 100 Neutrophils % (Manual) 85 % (45-75) H Lymphocytes % (Manual) 5 % (20-45) L Monocytes % (Manual) 6 % (1-10) Eosinophils % (Manual) 1 % (0-3) Basophils % (Manual) 0 % (0-2) Band Neutrophils 3 % (0-8) Platelet Estimate Adequate Platelet Morphology Normal Red Blood Cell Morphology Normal Coagulation Test 09/19/18 21:30 Prothrombin Time 10.8 SEC (9.30-11.50) Prothromb Time International Ratio 1.0 (0.9-1.1) Activated Partial Thromboplast Time 30 SEC (23-33) Chemistry Test 09/19/18 21:30 09/20/18 06:35 Sodium Level 140 MMOL/L (136-145) 140 MMOL/L (136-145) Potassium Level 3.7 MMOL/L (3.5-5.1) 3.3 MMOL/L (3.5-5.1) L Chloride Level 105 MMOL/L (98-107) 104 MMOL/L (98-107) Carbon Dioxide Level 28 MMOL/L (21-32) 29 MMOL/L (21-32) Anion Gap 7 mmol/L (5-15) 8 mmol/L (5-15) Blood Urea Nitrogen 30 mg/dL (7-18) H 23 mg/dL (7-18) H Creatinine 0.8 MG/DL (0.55-1.30) 0.7 MG/DL (0.55-1.30) Estimat Glomerular Filtration Rate mL/min (>60) mL/min (>60) Glucose Level 111 MG/DL (74-106) H 114 MG/DL (74-106) H Calcium Level 8.9 MG/DL (8.5-10.1) 8.8 MG/DL (8.5-10.1) Total Bilirubin 0.5 MG/DL (0.2-1.0) Aspartate Amino Transf (AST/SGOT) 23 U/L (15-37) Alanine Aminotransferase (ALT/SGPT) 10 U/L (12-78) L Alkaline Phosphatase 81 U/L (46-116) Total Protein 7.3 G/DL (6.4-8.2) Albumin 3.4 G/DL (3.4-5.0) Globulin 3.9 g/dL Albumin/Globulin Ratio 0.9 (1.0-2.7) L Studies Pre-op Studies: EKG - sr Risk Assessment & Plan Assessment: ASA II Plan: SAB vs GA Status Change Before Surgery: No Pre-Antibiotics Drug: Ada Washington MD Sep 20, 2018 12:59
--- NOTE | 2018-09-20 13:00 | NUR ---
NURSE NOTES: Medicated patient with Benadryl 25 mg x1 dose as ordered. Reassessed patient, redness subsided. Patient remains stable.
--- NOTE | 2018-09-20 14:18 | NUR ---
NURSE NOTES: Spoke with Dr. Bull regarding patient's spouse request to transfer to [facility] today for orthopedic surgery. Order received for CM to check bed availability at [facility]. Called Abimbola WELSH, notified of above. Will follow up as needed.
--- NOTE | 2018-09-20 19:00 | NUR ---
NURSE NOTES: Patient noted with redness generalized to head and body again, no respiratory distress noted. Message left for Dr. Bull at 1750, no call back yet. Will endorse to next shift RN.
--- NOTE | 2018-09-20 19:45 | NUR ---
HAND-OFF: Report given to Manjinder CRYSTAL.
--- NOTE | 2018-09-20 20:00 | NUR ---
NURSE NOTES: Pt lying in bed w/family at bedside, bed in lowest position, and call light within reach. Pt A&Ox4, VSS, and in no apparent distress. IV site intact/asymptomatic w/IVF @ 50 ml/hr; F/C patent/draining well; and skin intact w/body rash noted. Will continue to monitor.
--- NOTE | 2018-09-20 20:15 | NUR ---
NURSE NOTES: Consent for Left Hip Hemiarthroplasty/Blood Transfusion reviewed with patient, daughter and . Signed by patient's .
--- NOTE | 2018-09-20 20:45 | Consultation ---
DATE OF CONSULTATION: 09/20/2018 ORTHOPEDIC CONSULTATION CHIEF COMPLAINT: Left hip pain. HISTORY OF PRESENT ILLNESS: The patient is an 83-year-old female, who sustained a mechanical fall. She was diagnosed with left femoral neck fracture. Orthopedic consultation was obtained for further care and recommendation. PAST MEDICAL HISTORY: Reviewed per intake chart. SURGICAL HISTORY: Reviewed per intake chart. MEDICATIONS: Reviewed per intake chart. PHYSICAL EXAMINATION: GENERAL: The patient is pleasant lying in the hospital bed. She appears to be relatively comfortable. VITAL SIGNS: Afebrile with stable vital signs. EXTREMITIES: Left hip examination shows pain with heel strike. Pain with log roll. NEUROVASCULAR: Normal. IMAGING STUDY: Showed valgus impacted femoral neck fracture. ASSESSMENT: Left proximal right femoral fracture. DISCUSSION: At this point what I recommend is instructions for closed reduction and percutaneous pinning of the left hip. Risks, limitations, expectations, and complications of the procedure were discussed in detail. All questions were addressed. We will proceed with surgery tomorrow. She is medically optimized. The patient does want to be transferred potentially to [facility] and therefore, if she is not transferred, we will go and proceed with surgery. If she is transferred then they can take care of her there. José Miguel Jennings M.D. DR: JOSE JOB#: [id number] CC:
--- NOTE | 2018-09-20 22:00 | NUR ---
NURSE NOTES: Obtained written consent from pt's for updated procedure and placed in chart. Will endorse to AM shift RN.
[2018-09-21] VITALS (15 sets, daily range): BP systolic 110–157; BP diastolic 57–106
--- NOTE | 2018-09-21 07:20 | NUR ---
NURSE NOTES: Report received from outgoing RN, rounds made. Patient resting on right side in bed, alert/oriented x4 calm. Spouse at bedside. No distress noted. IVF infusing to LAC, site asymptomatic. Sahu patent, draining to gravity. Call light in reach, bed in lowest position. Will continue to monitor.
--- NOTE | 2018-09-21 07:28 | NUR ---
HAND-OFF: Report given to MARAH Morton.
--- NOTE | 2018-09-21 08:10 | NUR ---
NURSE NOTES: Patient noted with generalized reddened areas (head and body), blanches to touch, skin remains intact, denies itching, no respiratory distress. Will continue to monitor.
[2018-09-21] MEDS: D5 1/2NS w/KCl 20mEq 1,000 ML IV SCH ×2 (08:24→19:54)
[2018-09-21] MEDS: Heparin 5000 units/ml inj SUBQ SCH ×2 (08:26→20:49)
[2018-09-21] MEDS: Levodopa/Carbidopa 25/100 tab ORAL SCH ×3 (08:34→18:00)
--- NOTE | 2018-09-21 08:35 | NUR ---
NURSE NOTES: Dr. Martha Gutierrez notified of generalized reddened areas while at patient's bedside, no labs order for follow up K level and current PRN pain medication list. See updated orders. S
[2018-09-21 09:17] LABS: ANION GAP 7 mmol/L (5-15); BLOOD UREA NITROGEN 40 mg/dL (7-18); CALCIUM 8.4 MG/DL (8.5-10.1); CARBON DIOXIDE 26 MMOL/L (21-32); CHLORIDE 105 MMOL/L (98-107); CREATININE 0.9 MG/DL (0.55-1.30); POTASSIUM 3.9 MMOL/L (3.5-5.1); SODIUM 138 MMOL/L (136-145)
[2018-09-21] MEDS: DiphenhydrAMINE 50mg/ml Inj IVP PRN (11:22)
--- NOTE | 2018-09-21 12:08 | General Progress Note ---
Assessment/Plan Assessment/Plan #L hip intertrochanteric fx secondary to GLF -Cont supportive care -Pain control -VTE PPx -Plan for surgery today -IV hydration -Orthopedic Surgery christiano castro -Spoke with at bedside #Mild hypokalemia -replace with IV fluids #Parkinson's -continue Sinemet #Contact dermatitis -Benadryl prn I spent 70 minutes on this patient's case, and 35 minutes was dedicated to counseling and/or care coordination. Subjective Date patient seen: Sep 21, 2018 Time patient seen: 11:00 Constitutional: Denies: chills HEENT: Denies: blurred vision Cardiovascular: Denies: chest pain, edema, irregular heart rate Respiratory: Denies: cough, shortness of breath Gastrointestinal/Abdominal: Denies: abdominal pain Allergies: Coded Allergies: ACETAMINOPHEN (Verified Allergy, Unknown, 09/23/16) IBUPROFEN (Verified Allergy, Unknown, 09/23/16) STRAWBERRY (Verified Allergy, Unknown, 09/23/16) Objective Last 24 Hour Vital Signs Date Time Temp Pulse Resp B/P (MAP) Pulse Ox O2 Delivery O2 Flow Rate FiO2 09/21/18 09:00 Room Air 09/21/18 08:00 98.5 79 18 126/72 (90) 95 09/21/18 04:00 98.6 100 18 133/86 (102) 95 09/21/18 00:50 97.6 81 18 140/74 (96) 97 09/20/18 21:00 Room Air 09/20/18 20:00 98.6 79 18 121/66 (84) 97 09/20/18 16:00 97.6 78 18 147/74 (98) 98 Intake and Output 09/20/18 09/21/18 19:00 07:00 Intake Total 300 ml 650 ml Output Total 300 ml 100 ml Balance 0 ml 550 ml Intake IV Total 300 ml 650 ml Output Urine Total 300 ml 100 ml Laboratory Tests 09/21/18 08:40: Sodium Level 138, Potassium Level 3.9, Chloride Level 105, Carbon Dioxide Level 26, Anion Gap 7, Blood Urea Nitrogen 40H, Creatinine 0.9, Estimat Glomerular Filtration Rate , Glucose Level 126H, Calcium Level 8.4L Height (Feet): 5 Height (Inches): 1.00 Weight (Pounds): 100 General Appearance: no apparent distress, alert Neck: non-tender, normal alignment Cardiovascular: normal peripheral pulses, normal rate Respiratory/Chest: chest wall non-tender, lungs clear, normal breath sounds Abdomen: normal bowel sounds, non tender, soft Skin: rash Michael Lares MD Sep 21, 2018 12:08
--- NOTE | 2018-09-21 12:45 | NUR ---
NURSE NOTES: RN administered Benadryl 25 mg IV as ordered for generalized rash at 1122, slightly improved, no itching reported, skin remains intact. No SOB at rest. Vitals stable. Family at bedside. Notified that OR pickup will be around 1 pm. Verbalized understanding. Pre-op checklist completed. Sahu catheter emptied at 1230, 150 ml aaron urine. IVF infusing to LAC as ordered. Continues NPO. Will continue to monitor.
--- NOTE | 2018-09-21 13:05 | NUR ---
NURSE NOTES: Patient sent down to OR at this time via bed, side rails up x4, with chart. Patient name, , MR number verified with ID bracelet and chart/consent. IV heplocked to LAC. Sahu catheter in place, patent/draining. Family at bedside. All personal belongings with family. Patient stable.
[2018-09-21] MEDS ORDERED: Bupivacaine 0.5% Inj 30 ml vial INJ ONE (13:45)
[2018-09-21] MEDS ORDERED: Duramorph PF 5mg/10ml amp ONE (13:45)
--- NOTE | 2018-09-21 13:51 | Pre-Procedure Note/Attestation ---
Pre-Procedure Note/Attestation Complete Prior to Procedure Planned Procedure: left Procedure Narrative: hip crpp Indications for Procedure Pre-Operative Diagnosis: left femoral neck fracture Attestation I attest that I discussed the nature of the procedure; its benefits; risks and complications; and alternatives (and the risks and benefits of such alternatives ), prior to the procedure, with the patient (or the patient's legal loss prevention representative). I attest that, if there was a reasonable possibility of needing a blood transfusion, the patient (or the patient's legal loss prevention representative) was given the [facility] standardized written summary, pursuant to the Dannie Blood Safety Act ([place] Health and Safety Code # 1645, as amended). I attest that I re-evaluated the patient just prior to the surgery and that there has been no change in the patient's H&P, except as documented below: José Miguel Jennings MD Sep 21, 2018 13:51
--- NOTE | 2018-09-21 13:51 | Operative Note - PDOC ---
Operative Note Operative Note Pre-op Diagnosis: left femoral neck fracture Procedure: see op report Post-op Diagnosis: same as pre-op plus Operative Findings: consistent w/pre-op dx studies Anesthesia: regional Specimen: none Complications: none Condition: stable Estimated Blood Loss: none Implant(s) used?: Yes José Miguel Jennings MD Sep 21, 2018 13:51
[2018-09-21] MEDS ORDERED: fentaNYL 100 mcg/2 mL IV ONE (14:00)
[2018-09-21] MEDS ORDERED: Milk of Magnesia 30ml Ud ORAL PRN (14:00)
[2018-09-21] MEDS ORDERED: Propofol 200mg/20ml IV ONE (14:00)
[2018-09-21] MEDS ORDERED: NS Irrig 1000ml ONE (14:00)
[2018-09-21] MEDS ORDERED: HYDROcodone/Acetamin 7.5/325 tab ORAL PRN (14:00)
[2018-09-21] MEDS ORDERED: Sterile Water Irrig 1000ml IRRIG ONE (14:00)
[2018-09-21] MEDS ORDERED: Bacitracin 50000 Units Vial ONE (14:02)
[2018-09-21] MEDS ORDERED: Ketorolac 30mg Inj ONE (14:02)
[2018-09-21] MEDS ORDERED: Bupivacaine w/Epi 0.5% 30ml Vial INJ ONE (14:02)
[2018-09-21] MEDS ORDERED: Morphine Sulfate PF 0 ML ONE (14:02)
[2018-09-21] MEDS ORDERED: fentaNYL 100 mcg/2 mL IV PRN (15:00)
[2018-09-21] MEDS ORDERED: DiphenhydrAMINE 50mg/ml Inj IVP PRN (15:00)
--- NOTE | 2018-09-21 15:25 | Immediate Post-Op Evaluation ---
Immediate Post-Op Evalulation Immediate Post-Op Evalulation Procedure: L femoral neck Fx ORIF Date of Evaluation: Sep 21, 2018 Time of Evaluation: 15:24 IV Fluids: 700 Blood Products: none Estimated Blood Loss: <50 Urinary Output: 100 Blood Pressure Systolic: 148 Blood Pressure Diastolic: 76 Pulse Rate: 74 Respiratory Rate: 20 O2 Sat by Pulse Oximetry: 99 Temperature (Fahrenheit): 97.8 Pain Score (1-10): 1 Nausea: No Vomiting: No Complications none Patient Status: awake, patent, none Hydration Status: adequate Jerad Coughlin MD Sep 21, 2018 15:25
--- NOTE | 2018-09-21 15:39 | NUR ---
Social Work This SW received a consult to assist with a home safety evaluation. Patient is out of the room, currently in surgery due to a hip fracture. Pending P.T to evaluate; patient will most likely require SNF rehab upon discharge. This Sw spoke with spouse, Dimas ([phone]) who is anticipating discharge to a SNF as well, will speak with M.D regarding location. CM/SW to follow for placement.
--- NOTE | 2018-09-21 16:34 | Diagnostic Imaging Report ---
Indication: Intraoperative imaging Comparison: None Findings: Gagnon pins placement of a left hip fracture noted on multiple fluoroscopic images. IMPRESSION: Intraoperative imaging
--- NOTE | 2018-09-21 18:30 | NUR ---
NURSE NOTES: Patient returned to room from PACU at 1705 via bed, in stable condition, O2 2L NC in place, oxygen saturation 100%. IVF restarted with rate change as ordered to LAC, D5.45 NS + 20 KCL at 75 ml/hr. Patient arousable, calm. Patient spouse refused Sinemet 1800 dose at this time. Clear liquid tray order, denies NV/pain. Left hip dressing 4x4 with tegederm in place, clean/dry/intact. Orr patent, draining to gravity, orders to DC orr, will endorse to oncoming RN. CMS+, skin warm to BLE, able to wiggle, denies numbness/tingling, SCD to RLE, no edema noted to BLE, capillary refill <3 seconds, LLE in proper alignment. Call light in reach, HOB elevated 30 degrees to patient tolerance, bed in lowest position, will continue to monitor.
--- NOTE | 2018-09-21 19:45 | NUR ---
NURSE NOTES: Pt lying in bed w/ at bedside, bed in lowest position, and call light within reach. Pt A&Ox4, VSS, and in no apparent distress. IV site intact//asymptomatic w/IVF @ 75 ml/hr and surgical dressing C/D/I. Per morning shift charge nurse, no abduction pillow available for pt; will ask nurse communications equipment supervisor for pillow. Will continue to monitor.
--- NOTE | 2018-09-21 19:50 | NUR ---
HAND-OFF: Report given to Manjinder CRYSTAL.
--- NOTE | 2018-09-21 20:08 | NUR ---
NURSE NOTES: Called and left massage to verify pain medication order and waiting for call back.
--- NOTE | 2018-09-21 20:30 | Operative Note - Dictated ---
DATE OF OPERATION: 09/19/2018 PREOPERATIVE DIAGNOSIS: Left femoral neck fracture. POSTOPERATIVE DIAGNOSIS: Left femoral neck fracture. PROCEDURE: Closed reduction and percutaneous pinning, left hip. SURGEON: José Miguel Jennings M.D. ANESTHESIA: Spinal. INDICATION FOR PROCEDURE: The patient is a pleasant female, who sustained a mechanical fall. She was diagnosed with left femoral neck fracture indicative of operative fixation, closed reduction and percutaneous pinning. Risks, limitations, expectations, and complications of the procedure were discussed in detail. All questions addressed. DESCRIPTION OF PROCEDURE: After informed consent was obtained, the patient was brought to the operating room and placed under general anesthesia. The patient was then carefully placed on the fracture table. The hip was left in situ. Left hip was prepped and draped in a sterile manner. Lateral skin incision was then made. Three guidewires placed in inverted pattern along with 6.5 cannulated screws. The skin was closed with #1 Vicryl suture, 2-0 Vicryl suture. Steri-Strips and a sterile dressing were applied. The patient was awoken and taken to recovery room with stable vital signs. ESTIMATED BLOOD LOSS: Minimal. COMPLICATIONS: None. SPECIMENS: None. IMPLANTS: Include three 6.5 partially threaded Brooke hip pinning screws. José Miguel Jennings M.D. DR: JOSE JOB#: [id number] CC:
[2018-09-21] MEDS: ceFAZolin 2gm/50ml Premix 50 ML IV SCH (20:46)
[2018-09-22] VITALS: BP 142/81
[2018-09-22 04:00] VITALS: BP 121/52
[2018-09-22] MEDS: ceFAZolin 2gm/50ml Premix 50 ML IV SCH (05:00)
[2018-09-22] MEDS: D5 1/2NS w/KCl 20mEq 1,000 ML IV SCH ×3 (05:07→19:40)
[2018-09-22 06:52] LABS: ANION GAP 8 mmol/L (5-15); BLOOD UREA NITROGEN 39 mg/dL (7-18); CALCIUM 8.6 MG/DL (8.5-10.1); CARBON DIOXIDE 24 MMOL/L (21-32); CHLORIDE 108 MMOL/L (98-107); CREATININE 0.7 MG/DL (0.55-1.30); POTASSIUM 3.5 MMOL/L (3.5-5.1); SODIUM 140 MMOL/L (136-145)
[2018-09-22 07:03] LABS: BASOPHILS % (AUTO) 0.2 % (0.0-2.0); EOSINOPHILS % (AUTO) 0.8 % (0.0-3.0); HEMATOCRIT 35.7 % (37.0-47.0); HEMOGLOBIN 12.2 G/DL (12.0-16.0); LYMPHOCYTES % (AUTO) 5.9 % (20.0-45.0); MEAN CORPUSCULAR VOLUME 90 FL (80-99); MONOCYTES % (AUTO) 9.9 % (1.0-10.0); NEUTROPHILS % (AUTO) 83.1 % (45.0-75.0); PLATELET COUNT 154 K/UL (150-450); RED BLOOD COUNT 3.95 M/UL (4.20-5.40); RED CELL DISTRIBUTION WIDTH 12.1 % (11.6-14.8); WHITE BLOOD COUNT 8.8 K/UL (4.8-10.8)
--- NOTE | 2018-09-22 07:20 | NUR ---
HAND-OFF: Report given to MARAH Beth.
--- NOTE | 2018-09-22 07:42 | NUR ---
NURSE NOTES: asleep. no c/o pain. in no apparent distress. Addendum: 09/22/18 at 0748 by LUIS F GONZALEZ RN disregard above notation. incorrect pt.
--- NOTE | 2018-09-22 07:48 | NUR ---
NURSE NOTES: awake/alert. left hip dressing dry and intact. with good pedal pulse. no c/o pain. with rashes all over body. in no acute distress.
[2018-09-22 08:00] VITALS: BP 141/63
[2018-09-22] MEDS ORDERED: Levodopa/Carbidopa 25/100 tab ORAL SCH ×2 (08:30→08:45)
--- NOTE | 2018-09-22 08:50 | 48 Hour Post Anesthesia Eval ---
Post Anesthesia Evaluation Procedure: L femoral neck Fx ORIF Date of Evaluation: Sep 22, 2018 Time of Evaluation: 08:49 Blood Pressure Systolic: 125 0: 72 Pulse Rate: 64 Respiratory Rate: 20 Temperature (Fahrenheit): 97.6 O2 Sat by Pulse Oximetry: 98 Airway: patent Nausea: No Vomiting: No Pain Intensity: 2 Hydration Status: adequate Cardiopulmonary Status: stable Mental Status/LOC: patient returned to baseline Follow-up Care/Observations: n/a Post-Anesthesia Complications: none Follow-up care needed: N/A Jerad Coughlin MD Sep 22, 2018 08:50
[2018-09-22] MEDS: Docusate Sod/Senna tab ORAL SCH ×2 (08:53→17:34)
[2018-09-22] MEDS: Docusate 100mg cap ORAL SCH ×3 (08:54→17:34)
[2018-09-22] MEDS: Heparin 5000 units/ml inj SUBQ SCH ×3 (08:59→21:42)
[2018-09-22] MEDS ORDERED: celeBREX 200mg Cap **SURGERY PATIENTS ONLY ORAL SCH (09:00)
--- NOTE | 2018-09-22 10:33 | General Progress Note ---
Assessment/Plan Assessment/Plan #L hip intertrochanteric fx secondary to GLF # s/p Closed reduction and percutaneous pinning POD#1 -Cont supportive care -Continue routine post-op care -IS -Pain control -PT eval -Will likely require SNF -VTE PPx -Spoke with at bedside #Mild hypokalemia -monitor BMP #Parkinson's -continue Sinemet #Contact dermatitis -Benadryl prn I spent 70 minutes on this patient's case, and 35 minutes was dedicated to counseling and/or care coordination. Subjective Date patient seen: Sep 22, 2018 Time patient seen: 10:30 Constitutional: Denies: chills, fever Cardiovascular: Denies: chest pain Respiratory: Denies: cough, shortness of breath Gastrointestinal/Abdominal: Denies: abdominal pain Allergies: Coded Allergies: MORPHINE (Verified Allergy, Mild, Generalized rash on whole body, 09/21/18) ACETAMINOPHEN (Verified Allergy, Unknown, 09/23/16) IBUPROFEN (Verified Allergy, Unknown, 09/23/16) STRAWBERRY (Verified Allergy, Unknown, 09/23/16) Subjective Medicine follow up for GLF and left hip femoral neck fracture. S/p Closed reduction and percutaneous pinning, left hip 09/21/18 No current complaints, denies any pain Objective Last 24 Hour Vital Signs Date Time Temp Pulse Resp B/P (MAP) Pulse Ox O2 Delivery O2 Flow Rate FiO2 09/22/18 09:25 Room Air 09/22/18 08:50 64 20 98 09/22/18 08:00 98.6 82 18 141/63 (89) 94 09/22/18 04:00 97.0 81 18 121/52 (75) 91 09/22/18 00:00 98.1 90 18 142/81 (101) 93 09/21/18 21:00 Room Air 09/21/18 20:00 97.9 84 18 155/106 (122) 93 09/21/18 17:10 97.8 88 19 137/89 (105) 100 09/21/18 17:00 97.8 98 20 151/81 100 Nasal Cannula 2.0 09/21/18 16:45 97.8 97 19 152/82 100 Nasal Cannula 2.0 09/21/18 16:30 95 20 155/84 100 Nasal Cannula 2.0 09/21/18 16:15 100 19 152/70 99 Nasal Cannula 2.0 09/21/18 16:00 99 18 157/73 99 Nasal Cannula 2.0 09/21/18 15:45 94 19 149/65 100 Simple Mask 6.0 09/21/18 15:32 92 20 150/57 100 Simple Mask 6.0 09/21/18 15:27 86 19 149/61 100 Simple Mask 6.0 09/21/18 15:25 74 20 99 09/21/18 15:22 97.8 86 20 150/62 100 Simple Mask 6.0 09/21/18 12:00 98.1 81 19 110/65 (80) 96 Intake and Output 09/21/18 09/22/18 19:00 07:00 Intake Total 900 ml 1115 ml Output Total 150 ml 200 ml Balance 750 ml 915 ml Intake Oral 240 ml IV Total 900 ml 875 ml Output Urine Total 100 ml 200 ml Estimated Blood Loss 50 ml Laboratory Tests 09/22/18 05:00: White Blood Count 8.8, Red Blood Count 3.95L, Hemoglobin 12.2, Hematocrit 35.7L , Mean Corpuscular Volume 90, Mean Corpuscular Hemoglobin 31.0, Mean Corpuscular Hemoglobin Concent 34.3, Red Cell Distribution Width 12.1, Platelet Count 154, Mean Platelet Volume 6.1L, Neutrophils (%) (Auto) 83.1H, Lymphocytes (%) (Auto) 5.9L, Monocytes (%) (Auto) 9.9, Eosinophils (%) (Auto) 0.8, Basophils (%) (Auto) 0.2, Sodium Level 140, Potassium Level 3.5, Chloride Level 108H, Carbon Dioxide Level 24, Anion Gap 8, Blood Urea Nitrogen 39H, Creatinine 0.7, Estimat Glomerular Filtration Rate , Glucose Level 131H, Calcium Level 8.6 Height (Feet): 5 Height (Inches): 1.00 Weight (Pounds): 100 General Appearance: no apparent distress, alert Cardiovascular: normal rate, regular rhythm Respiratory/Chest: lungs clear, normal breath sounds Abdomen: non tender, soft Michael Lares MD Sep 22, 2018 10:33
[2018-09-22 12:00] VITALS: BP 124/59
[2018-09-22] MEDS: Levodopa/Carbidopa 25/100 tab ORAL SCH ×3 (12:56→20:00)
--- NOTE | 2018-09-22 15:12 | NUR ---
PT Note PT christiano completed, treatment initiated. Patient was able to stand with the FWW, unable to take any steps. She has a narrow base of support and lack of bilateral dorsiflexion affects her standing and gait stability. Patient needs PT services to increase her LE ROM, muscle strength, balance to improve her functional mobility and gait.
[2018-09-22 15:59] VITALS: BP 117/59
--- NOTE | 2018-09-22 17:00 | NUR ---
NURSE NOTES: IV INFILTRATED AND DC'D. TRIED TO RESTART IV TWICE BUT NO LUCK. NSG FLOW TRADER (CHRIS CRYSTAL) NOTIFIED. WILL TRY TO GET UNIT NURSE TO HELP RESTART IV.
--- NOTE | 2018-09-22 18:58 | NUR ---
NURSE NOTES: RESTING IN BED. IN NO ACUTE DISTRESS.
--- NOTE | 2018-09-22 19:31 | NUR ---
HAND-OFF: Report given to Nneka CANADA RN.
--- NOTE | 2018-09-22 19:32 | NUR ---
NURSE NOTES: Report taken from MARAH Beth. Patient awake in bed, A&Ox4. Patient at bedside, voiced concerns with IV, medications, and removal of orr. Stated that patient does not get allergic reactions with tramadol, contacted for updated order. Patient has red rashes across most of body as a result of the allergic reaction. Having 9/10 pain on her left hip. Showing no signs of distress on room air. Continue to monitor patient, call light within reach, bed in lowest position.
[2018-09-22 20:00] VITALS: BP 129/74
--- NOTE | 2018-09-22 20:27 | NUR ---
NURSE NOTES: New IV placed in Rt hand/wrist, 24G. Patients refused patients Sinemet at 1999, stating that it makes her feel awake and it is too late to administer the medication.
[2018-09-22] MEDS: DiphenhydrAMINE 50mg/ml Inj IVP PRN (20:29)
--- NOTE | 2018-09-22 22:06 | NUR ---
NURSE NOTES: Patient seems to be getting confused. Is A&Ox2, daughter states that she does get some minor confusion and delerium at home. Told RN that the same issue with increased confusion occurred with previous hip surgery. Continue to monitor and assess.
[2018-09-23] VITALS: BP 128/78
[2018-09-23] MEDS: Hydromorphone 0.5mg/0.5ml inj IVP PRN ×3 (01:15→17:08)
--- NOTE | 2018-09-23 03:43 | NUR ---
NURSE NOTES: Patient had orr d/c at 1930 per MD order. She has not voided since removal of orr. MD was contacted. Stated to observe the patient until 0800. If she has not voided by then, contact MD for new order. Addendum: 09/23/18 at 0456 by Frank Arteaga RN Bladder scan shows 128ml of urine
[2018-09-23] MEDS ORDERED: traMADol 50mg tab ORAL PRN (03:45)
[2018-09-23 04:00] VITALS: BP 128/74
[2018-09-23] MEDS: Heparin 5000 units/ml inj SUBQ SCH ×3 (06:28→22:14)
[2018-09-23] MEDS: D5 1/2NS w/KCl 20mEq 1,000 ML IV SCH (06:33)
--- NOTE | 2018-09-23 07:15 | NUR ---
HAND-OFF: Report given to MARAH Harman.
--- NOTE | 2018-09-23 07:41 | NUR ---
NURSE NOTES: Pt in bed, a/o x 3 in no acute distress on room air. Pt denies pain. Left hip dressing d/c/i. left foot Pt able to wiggle toes, intact sensation, 2+ pedal pulse. Patent right hand IV running fluids as ordered. Discussed plan of care with pt, and pain management plan. Will continue to monitor.
[2018-09-23 08:00] VITALS: BP 138/80
[2018-09-23] MEDS: Levodopa/Carbidopa 25/100 tab ORAL SCH ×4 (08:25→19:49)
[2018-09-23] MEDS: Docusate 100mg cap ORAL SCH ×3 (08:25→17:07)
[2018-09-23] MEDS: Docusate Sod/Senna tab ORAL SCH ×2 (08:25→17:07)
--- NOTE | 2018-09-23 10:42 | NUR ---
CASE MANAGEMENT: INITIAL REVIEW 83 YO F RILEY FROM HOME CC: [facility] W/ L HIP AND ELBOW PAIN PMHx: PARKINSON'S DX. SI:LEFT HIP FRACTURE. Closed reduction and percutaneous pinning POD#2 T 98.4 HR 88 RR 18 B/P 162/78 SATS 98% ON RA NO LABS TODAY IS: MORPHINE IV X1 NS BOLUS X1 PATIENT ADMITTED TO MED/SURG 09/19/2018 @ 9800 DCP: PATIENT TO BE DISCHARGED TO HOME ONCE MEDICALLY CLEARED. PLAN OF CARE: PAIN MANAGEMENT PT EVAL Addendum: 09/23/18 at 1504 by Radha Brandon CM INTERQUAL MET FOR ACUTE- DL
--- NOTE | 2018-09-23 11:50 | General Progress Note ---
Assessment/Plan Assessment/Plan #L hip intertrochanteric fx secondary to GLF # s/p Closed reduction and percutaneous pinning POD#2 -Cont supportive care -Continue routine post-op care -IS -Pain control -PT eval appreciated -Will discuss rehab facility with case management tomorrow -VTE PPx -Spoke with at bedside #Mild hypokalemia -resolved #Parkinson's -continue Sinemet #Contact dermatitis -Benadryl prn I spent 50 minutes on this patient's case, and 25 minutes was dedicated to counseling and/or care coordination. Subjective Date patient seen: Sep 23, 2018 Time patient seen: 12:00 Cardiovascular: Denies: chest pain Respiratory: Denies: cough, shortness of breath Gastrointestinal/Abdominal: Denies: abdomen distended, abdominal pain Genitourinary: Denies: burning Allergies: Coded Allergies: MORPHINE (Verified Allergy, Mild, Generalized rash on whole body, 09/21/18) ACETAMINOPHEN (Verified Allergy, Unknown, 09/23/16) IBUPROFEN (Verified Allergy, Unknown, 09/23/16) STRAWBERRY (Verified Allergy, Unknown, 09/23/16) Subjective Medicine follow up for GLF and left hip femoral neck fracture. S/p Closed reduction and percutaneous pinning, left hip 09/21/18 No current complaints, pain controlled with IV Dilaudid Objective Last 24 Hour Vital Signs Date Time Temp Pulse Resp B/P (MAP) Pulse Ox O2 Delivery O2 Flow Rate FiO2 09/23/18 11:23 98.8 09/23/18 09:00 Room Air 09/23/18 08:00 98.8 90 18 138/80 (99) 96 09/23/18 04:00 98.5 94 17 128/74 (92) 96 09/23/18 00:00 98.9 92 17 128/78 (95) 95 09/22/18 20:00 98.7 100 19 129/74 (92) 94 09/22/18 19:30 Room Air 09/22/18 15:59 97.6 78 18 117/59 (78) 96 09/22/18 12:00 97.5 79 17 124/59 (80) 100 Intake and Output 09/22/18 09/23/18 19:00 07:00 Intake Total 1230 ml Output Total 200 ml 100 ml Balance 1030 ml -100 ml Intake Oral 480 ml IV Total 750 ml Output Urine Total 200 ml 100 ml Height (Feet): 5 Height (Inches): 1.00 Weight (Pounds): 100 General Appearance: no apparent distress, alert Neck: normal alignment, supple Cardiovascular: normal rate, regular rhythm Respiratory/Chest: lungs clear, normal breath sounds Abdomen: non tender, soft Michael Lares MD Sep 23, 2018 11:50
[2018-09-23 12:00] VITALS: BP 122/57
[2018-09-23 16:00] VITALS: BP 138/65
--- NOTE | 2018-09-23 16:00 | NUR ---
Pt a/o x 2-3 throughout shift. Pt took few steps with PT, sat on chair for lunch. Pt has been encouraged throughout shift to use IS. Pt brings IS up to 500 max. Pt has trouble swallowing, forgetful. Medications have been crushed for safety. Fluids running as ordered. Generalized red rash improving on lower extremities. Pain well controlled with Dilaudid. Bilateral LE senstaion intact, pedal pulses 2+, able to wiggle toes. Will continue to monitor. Pt in bed with at bedside, skid socks on, call light within reach, bed locked.
--- NOTE | 2018-09-23 19:17 | NUR ---
NURSE NOTES: Report taken from MARAH Harman. Patient is awake and in bed, A&Ox3. at bedside. Sensation bilateral lower legs intact, pulses palpable. Surgical site is c/d/i. Skin rash is less prominent since previous shift, continue to assess skin. IV c/d/i and patent. Patient has been voiding. Is on SPR mattress with heel floaters. Previous shift nurse recommended crushing medicines. Patient has 4/10 pain and showing no signs of distress on room air. Bed in lowest position, call light within reach.
--- NOTE | 2018-09-23 19:35 | NUR ---
HAND-OFF: Report given to MARAH Marie. Pt left in bed in stable condition, fluids running as ordered, pt in no acute distress. Left leg intact sensation, 2+ pedal pulses. Bed in low position, call light within reach, skid socks on, at bedside.
[2018-09-23 20:00] VITALS: BP 141/69
[2018-09-23] MEDS: DiphenhydrAMINE 50mg/ml Inj IVP PRN (22:14)
[2018-09-24] VITALS: BP 136/72
[2018-09-24] MEDS: D5 1/2NS w/KCl 20mEq 1,000 ML IV SCH ×2 (00:05→13:04)
[2018-09-24 04:00] VITALS: BP 139/74
[2018-09-24] MEDS: Heparin 5000 units/ml inj SUBQ SCH ×2 (05:38→14:17)
--- NOTE | 2018-09-24 07:30 | NUR ---
HAND-OFF: Report given to MARAH Payne. Patient asleep in bed, vitals stable.
--- NOTE | 2018-09-24 07:34 | NUR ---
NURSE NOTES: received report from MARAH Marie. patient in bed. alert. no respiratory distress noted. bed in the lowest position. call light within reach. alarm on. will continue to monitor.
[2018-09-24 08:00] VITALS: BP 162/76
[2018-09-24] MEDS: Levodopa/Carbidopa 25/100 tab ORAL SCH ×2 (09:11→13:04)
[2018-09-24] MEDS: Docusate Sod/Senna tab ORAL SCH (09:11)
[2018-09-24] MEDS: Docusate 100mg cap ORAL SCH ×2 (09:11→13:03)
[2018-09-24] MEDS: Hydromorphone 0.5mg/0.5ml inj IVP PRN (09:20)
--- NOTE | 2018-09-24 09:55 | NUR ---
Social Service Note LURDES met with patient's Brent Arriaga [phone] regarding dc placement. requesting transfer to [facility]. LURDES faxed referral to [facility] [phone] (p) [phone] (f). Will follow up. Addendum: 09/24/18 at 1106 by ROSANGELA GONZALEZ Follow up call placed to [facility]. Patient accepted for placement. Pending available bed. Will follow up.
[2018-09-24] MEDS ORDERED: HEPARIN SO5000 UNIT2 SUBQ (11:29)
[2018-09-24] MEDS ORDERED: TRAMADOL HCL50 MG ORAL (11:29)
[2018-09-24] MEDS ORDERED: PERI-COLACE1 EA ORAL (11:29)
--- NOTE | 2018-09-24 11:35 | Discharge Summary ---
Discharge Summary Hospital Course Date of Admission Sep 19, 2018 at 22:13 Date of Discharge 09/24/18 Admitting Diagnosis L hip Fx HPI Noemi Arriaga is a 83 year old female who was admitted on Sep 19, 2018 at 22:13 for Left Hip Fracture Hospital Course #L hip intertrochanteric fx secondary to GLF # s/p Closed reduction and percutaneous pinning -Cont supportive care -Continue routine post-op care -IS -Pain control with tramadol -PT eval appreciated -VTE PPx heparin sc bid per Ortho -Discharge to [facility] rehab today #Mild hypokalemia -resolved #Parkinson's -continue Sinemet as outpatient #Rash possibly due to morphine, improved -will use Tramadol for pain -Benadryl prn I spent 32 minutes in preparing the discharge including time dedicated to counseling and care coordination + face to face discussions with family. Discharge Discharge Disposition [facility] Michael Lares MD Sep 24, 2018 11:35
[2018-09-24 12:00] VITALS: BP 166/69
--- NOTE | 2018-09-24 12:30 | NUR ---
NURSE NOTES: patient BP was 166/69 at 1200. no history of HTN, asymptomatic. notified DR. Thomas. no new order at this time. will continue to monitor .
--- NOTE | 2018-09-24 13:43 | NUR ---
Social Service Note SW received bed assignment from [facility]. Patient room assignment [address] Arvind Dao. Nurse to call report to [phone]. Ambulance arranged for [id number] by [facility] [phone].
--- NOTE | 2018-09-24 15:00 | NUR ---
NURSE NOTES: given admission report to [facility] rehab center, MARAH Worrell.
--- NOTE | 2018-09-24 16:38 | NUR ---
NURSE NOTES: patient discharged to [facility] via gurney accompanied by . patient fair condition. alert, verbally responsive. no respiratory distress noted. no c/o pain at this time. IV removed. belonging with . provided discharge package and obtained sign.
== END 2018-09-24 16:35 | disposition short-term general hospital (02) | DRG 482 ==
LOC: EDSEX 20:44 → EDBD 20:44 → EMR 21:02 → 3E 22:13 → EDBEDREQ 23:41
PROC: 0QS734Z Reposition Left Upper Femur with Internal Fixation Device, Percutaneous Approach (ICD-10-PCS; principal; 2018-09-19)
DX: S72.142A Displaced intertrochanteric fracture of left femur, initial encounter for closed fracture (principal); W01.0XXA Fall on same level from slipping, tripping and stumbling without subsequent striking against object, initial encounter; Y92.000 Kitchen of unspecified non-institutional (private) residence as the place of occurrence of the external cause; E87.6 Hypokalemia; G20 Parkinson's disease; Z88.6 Allergy status to analgesic agent; L27.0 Generalized skin eruption due to drugs and medicaments taken internally; T40.2X5A Adverse effect of other opioids, initial encounter
CPT/HCPCS: 36415; 72170; 76000; 80048; 80053; 85007; 85025; 85610; 85730; 86850; 86870; 86900; 86901; 94003; 94150; 96374; 99285; C9399